=== PATIENT | female | born 1995 | race Hispanic/Latino ===

== ENCOUNTER 2018-04-23 11:50 | Emergency (ER) | payer SELFPAY ==
[2018-04-23] MEDS ORDERED: Ibuprofen 200 MG TAB ONE (12:22)
[2018-04-23 12:49] LABS: Pregnancy Test - Urine (BHCG) Negative (Negative)
[2018-04-23 12:55] LABS: Pregu Control Background? CLEAR/WHITE (CLR/WHITE); Pregu Control Bar Appear? YES (CONTROL BAR); Specific Gravity 1.023 (1.002-1.036)
--- NOTE | 2018-04-23 13:26 | RAD ---
CHEST 2 VIEWS: HISTORY: Pleuritic chest pain. COMPARISON: None. FINDINGS: Lungs are clear. No pneumothorax or effusion. Cardiac silhouette and mediastinal contours within no rmal limits. IMPRESSION: No acute intrathoracic abnormality. POS: [facility]
--- NOTE | 2018-04-23 13:44 | RAD ---
THORACIC SPINE TWO VIEWS: History: Spinus process tenderness. Comparison: None. FINDINGS: There is a low grade reverse S-shaped scoliosis of the thoracic spine. No acute fracture is appreciat ed. Visualized ribs are unremarkable. IMPRESSION: No displaced fracture. POS: [facility]
== END 2018-04-23 14:17 | disposition home or self-care (01) ==
LOC: SCSER 11:50
DX: S70.211A Abrasion, right hip, initial encounter (principal); M54.6 Pain in thoracic spine; R07.89 Other chest pain; F43.10 Post-traumatic stress disorder, unspecified; V43.62XA Car passenger injured in collision with other type car in traffic accident, initial encounter
CPT/HCPCS: 71046; 72072; 81025; 93005